=== PATIENT | male | born 1945 | race Caucasian/White ===

== ENCOUNTER 2022-12-01 10:24 | Outpatient (CLI) | payer MEDICARE, OTHER | END 2022-12-01 10:25 | disposition home or self-care (01) | LOC: TBSIIMAG 10:24 | PROVIDERS: ATTEND Surgery | DX: M54.50 Low back pain, unspecified (principal); M51.26 Other intervertebral disc displacement, lumbar region; M48.061 Spinal stenosis, lumbar region without neurogenic claudication | CPT/HCPCS: 72148 ==

== ENCOUNTER 2022-12-14 10:19 | Outpatient (CLI) | payer MEDICARE, OTHER ==
[2022-12-14 12:33] LABS: Hemoglobin 16.1 g/dL (13.5-17.5); Mean Corpuscular HGB CONC 35.1 g/dL (32.0-36.0); Mean Corpuscular Hemoglobin 39.8 pg (27.0-33.0); Mean Corpuscular Volume 113.3 fl (81.2-95.1); Mean Platelet Volume 9.3 fl (7.4-10.4); Platelet Count 496 10x3/uL (150-450); RBC Distribution Width 12.4 % (11.5-14.5); Red Blood Cell (RBC) Count 4.05 10x6/uL (4.32-5.72); White Blood Cell (WBC) Count 6.7 10x3/uL (3.5-10.5)
[2022-12-14 12:45] LABS: Anion Gap 16 mmol/L (10-20); BUN (Urea Nitrogen) 13 mg/dL (8.4-25.7); Calc. Creatinine Clearance 0 mL/min (70-130); Carbon Dioxide 23 mmol/L (23-31); Chloride 104 mmol/L (98-107); Estimated GFR 79; Glucose 104 mg/dL (83-110); Potassium 4.9 mmol/L (3.5-5.1); Sodium 138 mmol/L (136-145)
[2022-12-14 12:47] LABS: INR-International Normal Ratio 1.3; PTT 33.3 sec (22.0-33.0); Prothrombin Time 13.5 sec (9.5-12.1)
== END 2022-12-14 10:20 | disposition home or self-care (01) ==
LOC: LABBT 10:19
PROVIDERS: ATTEND Surgery
DX: Z01.818 Encounter for other preprocedural examination (principal); M51.16 Intervertebral disc disorders with radiculopathy, lumbar region; M48.062 Spinal stenosis, lumbar region with neurogenic claudication
CPT/HCPCS: 80048; 85027; 85610; 85730; 93005; 93010

== ENCOUNTER 2022-12-19 07:02 | Observation (INO) | payer MEDICARE, OTHER ==
[2022-12-15 14:00] VITALS: BMI 29.2
[2022-12-19] MEDS ORDERED: Acetaminophen 500 MG TAB ONE (09:26)
[2022-12-19] MEDS ORDERED: Vancomycin 1 GM VIAL ONE (10:05)
[2022-12-19] MEDS ORDERED: Thrombin 5000 UNITS/5 ML VIAL ONE ×2 (10:05→12:33)
[2022-12-19] MEDS ORDERED: CEFAZOLIN 2 GM VIAL ONE (10:16)
[2022-12-19] MEDS ORDERED: Sodium Chloride 0.9% 100 ML ONE (10:16)
[2022-12-19] MEDS ORDERED: PROPOFOL 200 MG/20 ML VIAL ONE (10:42)
[2022-12-19] MEDS ORDERED: GLYCOPYRROLATE/PF 0.2 MG/ML VIAL ONE (10:42)
[2022-12-19] MEDS ORDERED: Lidocaine 1% PF 5 ML VIAL ONE (10:42)
[2022-12-19] MEDS ORDERED: NEOSTIGMINE 3 MG/3 ML SYR 3 MG/3 ML SYRINGE ONE (10:42)
[2022-12-19] MEDS ORDERED: Ondansetron PF 4 MG/2 ML Vial ONE (10:42)
[2022-12-19] MEDS ORDERED: Rocuronium Bromide 10 MG/ML (10ML VIAL) ONE (10:42)
[2022-12-19] MEDS ORDERED: KETAMINE 100 MG/ML (5ML VIAL) ONE (13:03)
[2022-12-19] MEDS ORDERED: SUGAMMADEX SODIUM 200 MG/2 ML VIAL ONE (13:26)
[2022-12-19] MEDS ORDERED: Acetaminophen 325 MG TAB PO PRN (13:34)
[2022-12-19] MEDS ORDERED: Ondansetron PF 4 MG/2 ML Vial IVP PRN (13:34)
[2022-12-19] MEDS ORDERED: tiZANidine HCl 4 MG TAB PO PRN (13:37)
[2022-12-19] MEDS ORDERED: Diazepam 5 MG TAB PO PRN (13:37)
[2022-12-19] MEDS ORDERED: Ondansetron HCl/PF 4 MG/2 ML Vial IVP PRN (13:38)
[2022-12-19] MEDS ORDERED: Baclofen 10 MG TAB PO PRN (13:38)
[2022-12-19] MEDS ORDERED: Promethazine HCl 25 MG/ML VIAL IM PRN (13:38)
[2022-12-19] MEDS ORDERED: PACU-Morphine 4MG/ML VIAL SLOW IVP PRN (13:38)
[2022-12-19] MEDS ORDERED: fentaNYL 50 mcg/mL 1 mL Vial ONE ×3 (13:55→14:43)
[2022-12-19] MEDS: Morphine 2 MG/ML VIAL SLOW IVP PRN ×3 (15:45→22:01)
[2022-12-19] MEDS: metFORMIN 500 MG TAB PO SCH (16:32)
[2022-12-19] MEDS: Hydroxyurea 500 MG CAP PO SCH ×2 (16:32→20:15)
[2022-12-19] MEDS: HYDROcodone/Acetaminophen 7.5/325 mg Tablet PO PRN ×2 (16:33→23:10)
[2022-12-19] MEDS: Sodium Chloride 0.9% 1,000 ML IV SCH (16:37)
[2022-12-19] MEDS: CEFAZOLIN 2 GM in Sodium Chloride 0.9% 100 ML IVPB SCH (17:27)
[2022-12-19] MEDS: traMADol HCl 50 MG TAB PO PRN (20:20)
[2022-12-19] MEDS ORDERED: Atorvastatin Calcium 10 MG TAB PO SCH (21:00)
[2022-12-19] MEDS ORDERED: Ezetimibe 10 MG TAB PO SCH (21:00)
[2022-12-20] MEDS: CEFAZOLIN 2 GM in Sodium Chloride 0.9% 100 ML IVPB SCH (02:34)
[2022-12-20] MEDS: Sodium Chloride 0.9% 1,000 ML IV SCH (02:35)
[2022-12-20] MEDS: Acetaminophen/Codeine 30-300mg Tablet PO PRN ×2 (02:36→08:05)
[2022-12-20] MEDS: traMADol HCl 50 MG TAB PO PRN (03:10)
[2022-12-20] MEDS: HYDROcodone/Acetaminophen 7.5/325 mg Tablet PO PRN (05:12)
[2022-12-20] MEDS ORDERED: Levothyroxine Sodium 50 MCG TAB PO SCH (06:00)
[2022-12-20 06:15] LABS: #Eosinphils 0.1 thou/uL (0.0-0.7); #Lymphocytes 0.6 thou/uL (1.20-3.40); #Monocytes 0.5 thou/uL (0.11-0.59); #Neutrophils 5.2 thou/uL (1.40-6.50); %Basophils 0.6 % (0.0-1.0); %Eosinophils 1.3 % (0.0-10.0); %Lymphocytes 9.6 % (21.0-51.0); %Monocytes 7.8 % (0.0-10.0); %Neutrophils 80.7 % (42.0-75.0); Hemoglobin 13.7 g/dL (14.0-18.0); Mean Corpuscular HGB CONC 33.9 g/dL (32.0-36.0); Mean Corpuscular Hemoglobin 41.1 pg (27.0-31.0); Mean Platelet Volume 6.7 fL (7.4-10.4); Platelet Count 407 10x3/uL (130-400); RBC Distribution Width 11.9 % (11.5-14.5); Red Blood Cell (RBC) Count 3.32 mill/uL (4.70-6.10); White Blood Cell (WBC) Count 6.4 10x3/uL (4.8-10.8)
[2022-12-20 06:27] LABS: Anion Gap 10 mmol/L (10-20); BUN (Urea Nitrogen) 9 mg/dL (8.4-25.7); Calc. Creatinine Clearance 97 mL/min (70-130); Calcium 8.6 mg/dL (7.8-10.44); Carbon Dioxide 26 mmol/L (23-31); Chloride 105 mmol/L (98-107); Estimated GFR 72; Glucose 97 mg/dL (83-110); Potassium 4.3 mmol/L (3.5-5.1); Sodium 137 mmol/L (136-145)
[2022-12-20 07:13] VITALS: BP 128/68
[2022-12-20 07:56] VITALS: TEMP 98.9
[2022-12-20] MEDS: metFORMIN 500 MG TAB PO SCH (08:05)
[2022-12-20] MEDS: Hydroxyurea 500 MG CAP PO SCH (08:05)
[2022-12-20] MEDS ORDERED: Ramipril 5 MG CAP PO SCH (09:00)
== END 2022-12-20 08:40 | disposition home or self-care (01) ==
LOC: SDC 07:02 → T4-A 13:34
PROVIDERS: ADMIT Surgery; ATTEND Surgery
PROC: 01NB0ZZ Release Lumbar Nerve, Open Approach (ICD-10-PCS; principal; 2022-12-19)
PROC: 0ST20ZZ Resection of Lumbar Vertebral Disc, Open Approach (ICD-10-PCS; 2022-12-19)
DX: M48.062 Spinal stenosis, lumbar region with neurogenic claudication (principal); M51.16 Intervertebral disc disorders with radiculopathy, lumbar region; I10 Essential (primary) hypertension; E78.5 Hyperlipidemia, unspecified; I25.10 Atherosclerotic heart disease of native coronary artery without angina pectoris; E03.9 Hypothyroidism, unspecified; Z85.46 Personal history of malignant neoplasm of prostate; Z87.891 Personal history of nicotine dependence; Z79.02 Long term (current) use of antithrombotics/antiplatelets; Z79.82 Long term (current) use of aspirin; Z79.84 Long term (current) use of oral hypoglycemic drugs; Z79.890 Hormone replacement therapy; Z79.899 Other long term (current) drug therapy; Z88.8 Allergy status to other drugs, medicaments and biological substances
CPT/HCPCS: 63030; 63047; 63048; 80048; 85025; J3010; J3490; 96365; 96375; 96376; G0378; J2272; J2405; J2704; J3370